=== PATIENT | female | born 1965 | race Caucasian/White ===

== ENCOUNTER 2016-08-29 12:44 | Inpatient (IN) | payer OTHER ==
--- NOTE | 2016-08-29 12:50 | EDPHY ---
HPI/HX/ROS/PE/MDM Narrative: CHIEF COMPLAINT: Word finding difficulty HPI: The patient is a 50 year old female, brought in by EMS, who complains of nonfluent speech that started this morning. The patient states she woke up and felt more tired than usual, but attributed it to the time change. 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 She states she knew the word but was having a hard time getting it out. She made it to work and her coworker thought the patient was speaking abnormally. REVIEW OF SYSTEMS: Aside from elements discussed in the HPI, a comprehensive 10-point review of systems was reviewed and is negative. PMH: Denies. SOCIAL HISTORY: . PHYSICAL EXAM: General: Patient is alert, in no acute distress. ENT: Eyes are normal to inspection. ENT inspection normal. Neck: Normal inspection. Full range of motion. Respiratory: No respiratory distress. Breath sounds normal bilaterally. Cardiovascular: Regular rate and rhythm. Strong peripheral pulses. Abdomen: The abdomen is nontender to palpation. There are no peritoneal signs. There are normal bowel sounds. Back: Normal to inspection. No tenderness to palpation. Skin: Normal color. No rash. Warm and dry. Extremities: Normal appearance. Full range of motion. Neuro: Oriented x3. Normal motor function. Normal sensory function. No pronator drift. Normal finger to nose. Speech is well formed but occasional non- fluent. (Ephraim Banerjee) ED Course: Study: CT of the head. Indication: Word finding difficulty. Results: Right parietal round hemorrhage. Consider CT angiography to assess for underlying aneurysm and MRI brain without and with contrast to assess for any additional lesions or underlying brain pathology. The study was read by the radiologist, Dr. Pabon. I viewed the images myself on the PACS system. 1325: I consulted Dr. Neumann, Neurosurgery, his PA will see the patient in the ED. 1330: I discussed findings with the patient. 1350: The patient will be admitted to Dr. Cordero. (Ephriam Banerjee) MDM: CT perfusion head is reported by me to Dr. Dumont as showing no vascular abnormality. This is communicated to Dr. Nunez at 3:15 p.m. (Reinier Macias) This patient presents with alteration of speech and is unfortunately found to have an intracranial bleed. There is no evidence of ischemic CVA, seizure, drug intoxication, hyponatremia or infectious process. (Ephraim Banerjee) - Data Points Laboratory Results: Laboratory Results 08/29/16 12:54 08/29/16 12:54 08/29/16 08/29/16 08/29/16 12:54 12:54 12:54 WBC 5.89 10^3/uL 10^3/uL (3.80-9.50) RBC 4.28 10^6/uL 10^6/uL (4.18-5.33) Hgb 13.8 g/dL g/dL (12.6-16.3) Hct 39.8 % % (38.0-47.0) MCV 93.0 fL fL (81.5-99.8) MCH 32.2 pg pg (27.9-34.1) MCHC 34.7 g/dL g/dL (32.4-36.7) RDW 12.4 % % (11.5-15.2) Plt Count 296 10^3/uL 10^3/uL (150-400) MPV 9.9 fL fL (8.7-11.7) Neut % (Auto) 56.0 % % (39.3-74.2) Lymph % (Auto) 37.0 % % (15.0-45.0) [place] % (Auto) 5.4 % % (4.5-13.0) Eos % (Auto) 0.5 % L % (0.6-7.6) Baso % (Auto) 0.8 % % (0.3-1.7) Nucleat RBC Rel Count 0.0 % % (0.0-0.2) Absolute Neuts (auto) 3.29 10^3/uL 10^3/uL (1.70-6.50) Absolute Lymphs (auto) 2.18 10^3/uL 10^3/uL (1.00-3.00) Absolute Monos (auto) 0.32 10^3/uL 10^3/uL (0.30-0.80) Absolute Eos (auto) 0.03 10^3/uL 10^3/uL (0.03-0.40) Absolute Basos (auto) 0.05 10^3/uL 10^3/uL (0.02-0.10) Absolute Nucleated RBC 0.00 10^3/uL 10^3/uL (0-0.01) Immature Gran % 0.3 % % (0.0-1.1) Immature Gran # 0.02 10^3/uL 10^3/uL (0.00-0.10) PT 12.2 SEC SEC (12.0-15.0) INR 0.91 (0.83-1.16) APTT 27.7 SEC SEC (23.0-38.0) Sodium 138 mEq/L mEq/L (134-144) Potassium 3.8 mEq/L mEq/L (3.5-5.2) Chloride 101 mEq/L mEq/L (97-110) Carbon Dioxide 25 mEq/l mEq/l (22-31) Anion Gap 12 mEq/L mEq/L (8-16) BUN 11 mg/dL mg/dL (7-23) Creatinine 0.7 mg/dL mg/dL (0.6-1.0) Estimated GFR > 60 Glucose 113 mg/dL H mg/dL (70-100) Calcium 9.7 mg/dL mg/dL (8.5-10.4) Troponin I < 0.012 ng/mL ng/mL (0-0.034) Medications Given: Discontinued Medications Sodium Chloride (Ns) 1,000 mls @ 0 mls/hr IV ONCE ONE PRN Reason: Wide Open Stop: 08/29/16 12:55 Last Admin: 08/29/16 13:10 Dose: 1,000 mls General Time Seen by Provider: 08/29/16 12:45 Initial Vital Signs: Initial Vital Signs Temperature (C) 36.4 C 08/29/16 12:58 Heart Rate 78 08/29/16 12:58 Respiratory Rate 14 08/29/16 12:58 Blood Pressure 132/80 H 08/29/16 12:58 O2 Sat (%) 98 08/29/16 12:58 O2 Delivery Mode Room Air Allergies/Adverse Reactions: tetracycline Allergy (Verified 08/29/16 13:47) Rash Home Medications: Medication Instructions Recorded Polyethylene Glycol 3350 [Miralax 17 gm PO DAILY PRN 08/29/16 17 gm (*)] Departure - Departure Disposition: [facility] Acute Clinical Impression: parietal hemorrhage Condition: Fair Report Scribed for: Ephraim Banerjee Report Scribed by: Zoraida Lopez Date of Report: 08/29/16 Time of Report: 12:50
[2016-08-29] MEDS ORDERED: NS 1,000 ML IV ONE ×2 (12:54→19:32)
--- NOTE | 2016-08-29 13:15 | CPEKG ---
Heart Rate: 72 RR Interval: 833 P-R Interval: 160 QRSD Interval: 88 QT Interval: 424 QTC Interval: 465 P [place]: 75 QRS [place]: 57 T Wave [place]: 52 EKG Severity - NORMAL ECG - EKG Impression: SINUS RHYTHM Electronically Signed By: Ephraim Banerjee 29-Aug-2016 14:24:01
[2016-08-29 13:27] LABS: % IMMATURE GRANULYOCYTES 0.3 % (0.0-1.1); ABSOLUTE IMMATURE GRANULOCYTES 0.02 10^3/uL (0.00-0.10); ADD DIFF? NO; ADD MORPH? NO; ADD SCAN? NO; ATYPICAL LYMPHOCYTE FLAG 10 (0-99); FRAGMENT RBC FLAG 0 (0-99); HEMATOCRIT 39.8 % (38.0-47.0); HEMOGLOBIN 13.8 g/dL (12.6-16.3); LEFT SHIFT FLG 0 (0-99); LIPEMIA HEMOLYSIS FLAG 90 (0-99); MEAN CELL HEMOGLOBIN 32.2 pg (27.9-34.1); MEAN CELL HEMOGLOBIN CONCENTR. 34.7 g/dL (32.4-36.7); MEAN PLATELET VOLUME 9.9 fL (8.7-11.7); PLATELET CLUMPS FLAG 0 (0-99); PLATELET COUNT 296 10^3/uL (150-400); RED BLOOD CELL COUNT 4.28 10^6/uL (4.18-5.33); RED CELL DISTRIBUTION WIDTH 12.4 % (11.5-15.2)
[2016-08-29 13:35] LABS: ANION GAP 12 mEq/L (8-16); CALCIUM 9.7 mg/dL (8.5-10.4); CARBON DIOXIDE 25 mEq/l (22-31); CHLORIDE 101 mEq/L (97-110); CREATININE 0.7 mg/dL (0.6-1.0); GLOMERULAR FILTRATION RATE > 60; GLUCOSE 113 mg/dL (70-100); POTASSIUM 3.8 mEq/L (3.5-5.2); SODIUM 138 mEq/L (134-144)
[2016-08-29 13:46] LABS: TROPONIN I < 0.012 ng/mL (0-0.034)
[2016-08-29] MEDS ORDERED: IOPAMIDOL (ISOVUE-300) 100 ML BTL IV ONE ×2 (13:49→19:24)
[2016-08-29 13:55] LABS: INR 0.91 (0.83-1.16); PROTIME(PATIENT) 12.2 SEC (12.0-15.0)
[2016-08-29 13:56] LABS: APTT 27.7 SEC (23.0-38.0)
[2016-08-29] MEDS ORDERED: GADOBUTROL 10 ML VIAL IVP ONE (14:40)
[2016-08-29] MEDS ORDERED: BISACODYL 10 MG SUPP PR PRN (15:19)
[2016-08-29] MEDS ORDERED: POLYETHYLENE GLYCOL 3350 17 GM PKT PO PRN (15:19)
[2016-08-29] MEDS ORDERED: LACTULOSE 20 GM/30 ML UDCUP PO PRN (15:19)
[2016-08-29] MEDS ORDERED: MAGNESIUM HYDROXIDE 30 ML UDCUP PO PRN (15:19)
[2016-08-29] MEDS ORDERED: ONDANSETRON DISINTEGRATING 4 MG TAB PO PRN (15:20)
[2016-08-29] MEDS ORDERED: ONDANSETRON 4 MG/2 ML VIAL IVP PRN (15:20)
--- NOTE | 2016-08-29 17:48 | GHP ---
[f rep st] HISTORY AND PHYSICAL DATE OF ADMISSION: 08/29/2016 CHIEF COMPLAINT: Speech deficits. HISTORY OF PRESENT ILLNESS: This is a 50-year-old, otherwise healthy female, who states that she woke up this morning, felt somewhat fatigued, and was having some trouble with word finding. She then states that she drove her kids to school and continued having word-finding difficulties and then came to the emergency room where a CT of the head was performed and did show a right parietal round hemorrhage. The patient denies any trauma. She denies any history of hypertension. The patient denies being on any blood thinners. The patient states that other than the word-finding difficulties, she denies any headaches, nausea, vomiting, weakness, slurred speech. She states that she has felt just somewhat "off" in the last couple of days, and her states that she has been somewhat wagner. Otherwise, she has not noticed anything different. She denies any history of any stroke, aneurysm or seizures. REVIEW OF SYSTEMS: A 10-point review of systems was obtained and is otherwise negative other than stated in the HPI. PAST MEDICAL HISTORY: Patient has no current chronic medical conditions. History of lumpectomy found to be benign. PAST FAMILY HISTORY: Father with history of non hodkins lymphoma. No family history of aneurysms, strokes, vascular malformations MEDICATIONS: Current medications include MiraLAX p.r.n. PAST SURGICAL HISTORY: The patient says that she did have a right-sided lumpectomy a couple of years ago but this was found to be benign. She also had history of surgery on her left arm. ALLERGIES: Tetracycline, her reaction is a rash. SOCIAL HISTORY: Patient is . She currently works at [employer] in the office. She is to her , who is also a teacher at [employer]. She has 2 children. She denies any tobacco history, use of any alcohol or any other illicit drug use. OBJECTIVE: VITAL SIGNS: Blood pressure 118/73, heart rate is 84, respiratory rate 17, O2 saturation is 95% on room air. CONSTITUTIONAL: Patient is alert and oriented x3 in no acute distress. The patient is conversing appropriately, although does have some difficulty getting out words and stutters sometimes. HEENT: Head is normocephalic, atraumatic. Eyes: Pupils are equal, reactive to light and accommodation. Extraocular muscles are intact. NECK: Supple, soft and full range of motion. RESPIRATORY: The patient has normal work of breathing. ABDOMEN: There is no guarding. EXTREMITIES: There is no cyanosis or edema noted. NEUROLOGIC: Cranial nerves 2-12 are grossly intact. Tongue protrusion is midline. There is no facial droop. Has negative pronator drift. Sensation is intact to light touch over the face. Accessory muscles are 5/5 and equal in strength. Motor: Bilateral lower extremities are 5/5 and equal in strength in biceps, triceps, wrist extensors, flexors, interossei and blower and compressor assembler, and bilateral lower extremities are 5/5 and equal in strength in quadriceps, hamstrings, dorsiflexion, plantar flexion, and EHL. There is negative Babinski , negative clonus, negative Rich's and a negative pronator drift. LABORATORY DATA: White blood cell count 5.9, red cell count 4.28, hemoglobin 13.8, hematocrit 39.8, platelets are 296. PT 12.2, INR 0.91, PTT 27.7. Sodium is 138, potassium 3.8, chloride 101, anion gap 12, creatinine 0.7, glucose is 113. Troponin is less than 0.012. DIAGNOSTIC IMAGING: Review of head CT without contrast was performed and shows right parietal round hemorrhage. Consider CT angiography to assess for underlying aneurysm and MRI of brain with and without contrast to assess for any additional lesions or underlying brain pathology. A brain MRI was performed with and without contrast and shows a bland right parietal solitary cortical hemorrhage with local surrounding vasogenic edema. No convincing evidence to suggest that this represents metastatic disease or primary brain neoplasm. A solitary right parietal subcortical 21 mm acute round hemorrhage is confirmed with mid localized surrounding vasogenic edema. There is no associated gadolinium enhancement. There is some intrinsic and heterogeneity with within the anterior superior corner of the hemorrhage. The CT angiogram did not demonstrate any patent aneurysm or cortical vein thrombosis in this location. There is no midline shift, intraventricular or subarachnoid blood. There are no additional lesions (enhancing hemorrhagic or nonenhancing) are identified. There is no hydrocephalus or abnormal meningeal enhancement. There is no evidence of her sagittal sinus or other cortical venous thrombosis. Incidentally noted is a tiny 7 x 4 mm right parasagittal parietal vertex meningioma that is likely of no clinical significance. A head CTA was performed and shows normal CT angiogram of the neck and normal CT angiogram of the [place]. No significant enhancement associated with increased density presumed hemorrhage right anterior parietal lobe. A neck CTA was performed and shows normal CT angiogram of the [place]. The distal ICA at the base of the brain has a normal appearance bilaterally without evidence of stenosis. There is no significant plaque formation seen. There is normal branching into the anterior middle cerebral arteries. The anterior communicating artery is normal in appearance. There was no cut off of flow or evidence of aneurysm. ASSESSMENT AND PLAN: This is a 50-year-old female who is otherwise healthy and woke up having some speech difficulties this morning and was found to have a right parietal round hemorrhage. The patient has been taken for an MRI, as well as a CTA of the head and neck, which thus far has been negative for aneurysm or signs of other underlying mass or lesions however there is still some suspicion for underlying mass that may have bleed or underlying cavernous malformation as it is very rare for a young otherwise healthy person to have a spontaneous bleed in this manner. In order to be complete and check for any other metastatic disease that may be present, a CT of the Chest, abdomen and pelvis has been ordered. Also, after discussions with Dr. Bang, in order to rule out aneurysm or cavernous malformation, a diagnostic angiogram has been proposed to take place possibly tomorrow late afternoon. She may eat dinner but will need to be NPO after midnight for this procedure. At this time, we will continue to watch this patient in the intensive care unit with close neurologic checks q.2 hours. She will meet with Speech Therapy, Physical Therapy and Occupational Therapy. We will continue to have her blood pressure held below systolic of 140. She is to be up as tolerated. . If any changes in her neurologic or motor exam, please contact Neurosurgery. At this time, the patient remains neurologically intact. She does have some obvious problems with her speech. She does have problems getting words out smoothly and often stutters. She is otherwise intact. The patient was seen in the emergency room at 1:30 p.m. by myself and Dr. Crodero. Again, please call Neurosurgery with any other questions or concerns. /[id number]/MODL MTDD
[2016-08-29] MEDS: SENNOSIDES/DOCUSATE SODIUM TAB PO SCH (20:18)
[2016-08-29] MEDS: NS 1,000 ML IV SCH (21:39)
[2016-08-30] MEDS: ACETAMINOPHEN 325 MG TAB PO PRN ×3 (02:43→19:30)
[2016-08-30] MEDS: NS 1,000 ML IV SCH (04:57)
[2016-08-30] MEDS ORDERED: POLYETHYLENE GLYCOL 3350 17 GM PKT PO PRN (07:52)
--- NOTE | 2016-08-30 07:57 | SOAPPROG ---
SOAP Progress Note Assessment/Plan: Assessment: 50 yo F with right frontoparietal ICH Plan: neuro: stable, MRI/CTA with no evidence of underlying lesion, Dr Bang would like to do cerebral angiogram this afternoon CT C/A/P does not show any primary lesions PT/OT/ST keep SBP < 160 mmhg please call with neuro changes patient seen by Dr Garcia today 08/30/16 07:54 Subjective: no headache, no N/V. some continued issues with speech. Objective: Vital Signs Temp Pulse Resp BP Pulse Ox 36.6 C 79 13 110/67 98 08/30/16 07:44 08/30/16 07:44 08/30/16 07:44 08/30/16 07:44 08/30/16 07:44 08/29/16 08/30/16 08/31/16 05:59 05:59 05:59 Intake Total 2490 Balance 2490 PT 12.2 SEC (12.0-15.0) 08/29/16 12:54 INR 0.91 (0.83-1.16) 08/29/16 12:54 AAOx4, +FC PERRL, EOMI, no facial droop 5/5 + light touch ICD10 Worksheet Patient Problems: Problems Problem Status Onset Intracerebral bleed Acute - ICD10 Problem Qualifiers (1) Intracerebral bleed Qualifiers: Intracerebral hemorrhage etiology: nontraumatic Cerebral hemorrhage location: cerebral hemisphere, subcortical portion Encounter type: E Laterality: right Loss of consciousness presence/duration: L Qualified Code( s): I61.0 - Nontraumatic intracerebral hemorrhage in hemisphere, subcortical
[2016-08-30] MEDS: SENNOSIDES/DOCUSATE SODIUM TAB PO SCH ×2 (10:25→21:27)
--- NOTE | 2016-08-30 15:31 | GCON ---
[f rep st] CONSULTATION [facility] CONSULTATION REASON FOR ADMISSION: Intracerebral hemorrhage. HISTORY: The patient is a very pleasant 50-year-old white female without past medical history. She presented to the emergency room after feeling fatigued and having trouble word finding. She was se en in the emergency room. CT scan of the head showed a right parietal round hemorrhage. There was no prior history of trauma. She was seen by Neurosurgery and admitted to the intensive care unit. Currently she is resting comfortably. Her word finding has improved, though she does have slow spee ch. She denies any chest pain, pleuritic-type chest pain or angina equivalent. No fever or night s weats. PAST MEDICAL HISTORY: None. PAST SURGICAL HISTORY: She had a right lumpectomy. ALLERGIES: To tetracycline. SOCIAL HISTORY: No history of tobacco use. No history of alcohol use. She is a teacher at [employer]. PHYSICAL EXAM: VITAL SIGNS: Blood pressure is 102/70, pulse is 70, respirations 14, temperature 36 .8, oxygen saturation 100% on room air. GENERAL: She is a well-developed, well-nourished, 50-year- old white female who is resting comfortably in no acute distress. HEENT: Eyes are MICHAEL, EOMI. Th roat shows no erythema or tonsillar hypertrophy. NECK: Supple. There is no cervical adenopathy. HEART: Regular rate and rhythm without murmurs, rubs, or gallops. LUNGS: Clear to auscultation. No wheeze or rhonchi. ABDOMEN: Soft, nontender. Bowel sounds are present in all 4 quadrants. EXT REMITIES: There is no clubbing, cyanosis, or edema. LABORATORIES: White count 5.8, hemoglobin 13, hematocrit 39, platelet count is 296. INR is 0.91. Sodium 139, potassium 3.4, chloride 100, CO2 is 25, BUN 10, creatinine 0.7, glucose is 113. CT scan of the chest was clear. CT scan of the abdomen was normal. Brain MRI shows a right parietal solitary cortical hemorrhage with surrounding edema. IMPRESSION: Intracerebral hemorrhage, etiology of which is unclear. RECOMMENDATIONS: 1. DVT and PE prophylaxis. Holding anticoagulation for now. 2. Stress ulcer prophylaxis. 3. N.p.o. after midnight. 4. Arteriogram to be scheduled for tomorrow. 5. PT and OT. 6. Speech. /[id number]/MODL
[2016-08-30] MEDS ORDERED: NALOXONE HCL 0.4 MG/ML INJ ONE (16:10)
[2016-08-30] MEDS ORDERED: FLUMAZENIL 0.5 MG/5 ML MDV IVP ONE (16:10)
[2016-08-30] MEDS ORDERED: fentaNYL 100 MCG/2 ML INJ ONE (16:11)
[2016-08-30] MEDS ORDERED: MIDAZOLAM 2 MG/2 ML VIAL ONE (16:11)
--- NOTE | 2016-08-30 17:25 | POSTOPPROG ---
Post Op Note Date of Operation: 08/30/16 Surgeon: Guillermo Bang Anesthesia: IV Sedation Pre-op Diagnosis: right frontal hemorrhage Post-op Diagnosis: same, no vascular injury Indication: right frontal hemorrhage Procedure: diagnostic cerebral angiogram Findings: no evidence for vascular lesion or vasculopathy Inf/Abcess present in the surg proc area at time of surgery?: No EBL: Minimal Complications: none Specimen(s): none
[2016-08-30] MEDS ORDERED: IOPAMIDOL (ISOVUE-300) 100 ML BTL IV ONE (17:41)
[2016-08-30] MEDS ORDERED: HEPARIN 10,000 UNIT/10 ML MDV ONE (17:41)
[2016-08-31] MEDS: ACETAMINOPHEN 325 MG TAB PO PRN ×3 (05:25→16:05)
[2016-08-31] MEDS ORDERED: PROMETHAZINE HCL 25 MG TAB PO PRN (07:42)
--- NOTE | 2016-08-31 08:25 | NEUSURGPN ---
Assessment/Plan: Assessment: 50 yo F with right frontoparietal ICH and word finding issues. Plan: neuro: stable, MRI/CTA with no evidence of underlying lesion, Dr Bang performed angio yesterday no aneurysm seen. Follow up with Dr. Garcia in 1 week Consulted Hematology for coagulopathy work up, given spontaneously bleed CT C/A/P does not show any primary lesions PT/OT/ST Patient has been refereed to Dr. Gregory for out patient [employer] keep SBP < 160 mmhg please call with neuro changes patient seen by Dr Garcia today and discussed Dr. Bang If nausea improved can work towards disposition later today Subjective: Mild headache, mild nausea Objective: CN II-XII grossly intact. EOMI. PERRLA. NAD A&Ox3 MAEx4 10/20 and equal in BUE and BLE. - Physician Discussed Patient with : Gil Neurosurgery Physical Exam - Vitals, I&O, Labs I and O 08/30/16 08/31/16 09/01/16 05:59 05:59 05:59 Intake Total 2490 2310 Balance 2490 2310 Weight 55.3 kg Intake: Oral (ml) 500 1000 IV Infused (ml) 1989 1310 Ns 1,000 ml @ 75 mls/hr 490 1310 IV CONT SHANTELLE Rx#: [id number] Ns 1,000 ml @ Wide Open 500 IV ONCE ONE Rx#: [id number] Other: Intake Quantity Yes Sufficient Number of Voids Toilet 6 1 Number of Stools Toilet 6 Vital Signs Temp Pulse Resp BP Pulse Ox 36.8 C 81 14 94/62 L 98 08/30/16 20:00 08/31/16 04:00 08/31/16 04:00 08/31/16 04:00 08/31/16 04:00 ICD10 Worksheet Patient Problems: Problems Problem Status Onset Intracerebral bleed Acute
[2016-08-31] MEDS: SENNOSIDES/DOCUSATE SODIUM TAB PO SCH (09:08)
[2016-08-31 12:45] VITALS: BP 87/53; PULSE 77; RESP 16; TEMP 97.7; O2SAT 96
--- NOTE | 2016-08-31 16:33 | GCON ---
[f rep st] CONSULTATION NEW PATIENT CONSULTATION REFERRING PHYSICIAN: DEBBIE Fiore REASON FOR CONSULTATION: Spontaneous right frontoparietal intracerebral hemorrhage. HISTORY OF PRESENT ILLNESS: The patient is a very healthy 50-year-old woman with no significant pas t medical history, who presented to the emergency department with word finding difficulties/aphasia. She woke up Sunday morning and felt somewhat fatigued and out of sorts. She states after she doug pped her child off from school she was having trouble word finding and called her who recomm ended she come to the emergency room. The patient denied any trauma to the head. She denies any hi story of hypertension or being on blood thinners. She denied any headaches, nausea, vomiting, weakn ess. She states she has no history of cancer, no history of bleeding or clotting disorder. She denies any family history of bleeding or clotting disorder. She denies any autoimmune diseases. She denies having any palpitations or heart disorders. She has had previous surgeries and no exce ssive bleeding was documented at that time. She denies any skin rashes or joint pain. She has neve r herself had any autoimmune diseases. She denies any abnormal skin findings suggestive of melanoma. She denies any blood in her urine. S he had a head CT on arrival to the emergency department, suggestive of a right parietal round hemorr ben. She went on to have a brain MRI demonstrating bland right parietal solitary cortical hemorrha ge with local surrounding vasogenic edema. No evidence to suggest this represented metastatic disea se or primary brain neoplasm. CTA of head and neck were normal and showed no evidence of aneurysm. CT chest, abdomen, and pelvis showed no evidence that this could be metastasis from a primary lesio n. Her abdominal CT just mentions bulky uterus with mild cystic changes within the right ovary and adnexa and a small left renal angiomyolipoma. She did have a cerebral arteriogram that was reported ly normal as well. She has been followed by Neurosurgery and Neurology and her blood pressures have been well below 160. She is not on any blood thinners and and patient report that her word -finding difficulties are about the same. She has not developed any further weakness or other neuro logic changes. She does have a headache and some nausea. On review of her labs, CBC completely within normal limits as well as her coags, PT 12.2, INR 0.9, P TT 27.7. Her CMP does not suggest any evidence of kidney dysfunction. Liver dysfunction was not ev aluated. PAST MEDICAL HISTORY: No significant surgery other than a breast lumpectomy for a benign lesion. FAMILY HISTORY: Father with history of non-Hodgkin lymphoma, but no history of aneurysm, stroke, va scular malformations, bleeding, or clotting disorders. Her sister had a blood clot in the postpartu m timeframe and she has never had a recurrence. MEDICATIONS: Include MiraLAX p.r.n. ALLERGIES: Tetracycline, which caused rash. SOCIAL HISTORY: She is . She works at [employer] in the office. She has 2 children . Denies tobacco, alcohol, or significant illicit drug use. PHYSICAL EXAMINATION: VITAL SIGNS: Currently show blood pressure of 87/53, pulse of 77, respiratio n rate 16, saturating 96% on room air. Temperature is 36.5. GENERAL: She is a young/middle-aged w joon, not in acute distress. Alert and oriented. HEENT: Anicteric sclerae. Extraocular muscles a re equal, round, and reactive to light. Oropharynx is clear. Her tongue deviates slightly to the r ight. HEART: Regular rate and rhythm. LUNGS: Clear to auscultation bilaterally. ABDOMEN: Soft. No enlarged liver or spleen. LOWER EXTREMITIES: No significant edema. SKIN: I do not see any l esions concerning for melanoma. NEUROLOGIC: She is having word-finding difficulties/mild aphasia. Otherwise, neurologic exam was normal including 5/5 strength throughout. IMAGING AND LABORATORIES: As mentioned in HPI. ASSESSMENT AND PLAN: A 50-year-old woman with what appears to be a spontaneous right frontoparietal ICH with word finding difficulty. I have evaluated her labs, including coagulation studies and CBC, all of which are completely within normal limits. Given her history, both personal and family history, as well as normal labs, this i s very unlikely a coagulopathy as we typically screen with PT, PTT, and INR. There is some suggesti on that this small bleed could be due to a small metastasis that we are not yet seeing. She has no vascular malformations or anything to suggest aneurysmal culprit. In addition, she has no evidence that this was a hemorrhagic infarction/thrombus. I have reviewed her CT chest, abdomen, and pelvis and see no evidence that this is metastatic disease. However, given the rarity in this low-risk pat ient, would recommend a repeat MRI in about 6 weeks with repeat labs as well, including a CBC, CMP, and coags. We discussed the possibility of vasculitis, which is very unlikely given the focal findi ng as we would expect vasculitis to be more widespread and patient to have a history or some suggest ion of some autoimmune disease. Screening [place] is not unreasonable, but I think would be low yield. We are happy to follow this patient as an outpatient. I see no other workup warranted at this time and she continues to improve neurologically, which is reassuring, especially since if she had a coag ulopathy the bleeding may become worse. The patient's and sister at bedside. More than 30 minutes was spent with this patient, more than 50% of the time counseling and coordinat ing care. I appreciate this consult. /[id number]/MODL
== END 2016-08-31 18:00 | disposition home or self-care (01) | DRG 66 ==
LOC: EDUNIT# → UNDOADMOB 13:52 → OBSVTOIN 13:52 → F2N 18:55
PROVIDERS: ADMIT Neurological Surgery; ATTEND Neurological Surgery
DX: I61.8 Other nontraumatic intracerebral hemorrhage (principal)
CPT/HCPCS: 82947-QW; 92523-GN; 97161-GP; 97165-GO; 97535-GO; A9585; C1769; J1644; J2250; J2310; J2405; J3010; Q9967

== ENCOUNTER → 2016-10-10 | Outpatient (CLI) | payer OTHER ==
[~2016-10-10] MED LIST: GADOBUTROL 10 ML VIAL IVP ONE
== END ==
LOC: FIMAGING 09:55
PROVIDERS: ATTEND Physician Assistant Surgical
DX: I62.9 Nontraumatic intracranial hemorrhage, unspecified (principal)
CPT/HCPCS: A9585

== ENCOUNTER → 2016-12-14 | Outpatient (CLI) | payer OTHER | LOC: FIMAGING 12:33 | PROVIDERS: ATTEND Physician Assistant Surgical | DX: I61.8 Other nontraumatic intracerebral hemorrhage (principal) | CPT/HCPCS: A9585 ==

== ENCOUNTER → 2017-05-25 | Outpatient (CLI) | payer OTHER | LOC: FIMAGING 12:10 | PROVIDERS: ATTEND Family Medicine | DX: N63.10 Unspecified lump in the right breast, unspecified quadrant (principal) | CPT/HCPCS: G0204 ==

== ENCOUNTER → 2017-07-19 | Outpatient (CLI) | payer OTHER | LOC: FIMAGING 15:19 | DX: Q28.3 Other malformations of cerebral vessels (principal) | CPT/HCPCS: A9585 ==

== ENCOUNTER → 2018-07-08 | Outpatient (CLI) | payer OTHER | LOC: FIMAGING 10:54 | PROVIDERS: ATTEND Family Medicine | DX: Z12.31 Encounter for screening mammogram for malignant neoplasm of breast (principal) ==

== ENCOUNTER → 2018-11-15 | Outpatient (CLI) | payer OTHER | LOC: FIMAGING 11:21 ==